=== PATIENT | male | born 1960 | race Caucasian/White ===

== ENCOUNTER 2020-09-07 21:08 | Observation (INO) ==
--- NOTE | 2020-09-07 22:15 | Emergency Department Note ---
History of Present Illness General Chief complaint: Flank Pain Stated complaint: FLANK PAIN Time Seen by Provider: 09/07/20 22:03 History of Present Illness Maximum Pain Intensity: 5 This is a 60-year-old male that presents to the emergency department via private vehicle accompanied by with complaints of "right lower quadrant abdominal pain". The patient notes recent diagnosis of appendicitis by CT performed at the [facility] location as an outpatient. He was seen here in the ED about a week ago and was discharged home after general surgery eval on antibiotics. He has been doing well and had outpatient follow-up with general surgery. And he notes around 5:30 PM yesterday the pain returned and has been worsening into today. Pain is in the right lower quadrant and pain currently is a 5/10. He last ate food tonight around 5:30 PM. No trauma or injury. No f hakan, chills, nausea, vomiting or diarrhea. He notes this is the same exact pain that prompted the CT scan. Home Medications Medication Instructions Recorded Confirmed Type amlodipine 10 mg tablet 10 mg PO DAILY 09/01/20 09/07/20 History amoxicillin 875 mg-potassium 1 tab PO Q12H 10 Days #20 tab 09/01/20 09/07/20 Rx clavulanate 125 mg tablet (Augmentin) atorvastatin 20 mg tablet 20 mg PO QPM 09/01/20 09/07/20 History cholecalciferol (vitamin D3) 25 25 mcg PO DAILY 09/01/20 09/07/20 History mcg (1,000 unit) capsule (Vitamin D3) fluticasone propionate 50 2 spray INTRANASAL HS 09/01/20 09/07/20 History mcg/actuation nasal spray,suspension lisinopril 40 mg tablet 40 mg PO DAILY 09/01/20 09/07/20 History metformin 1,000 mg tablet 1,000 mg PO BID 09/01/20 09/07/20 History poeoptfwycla-wpwhakzw-ezdqzr 1 tab PO Q OTHER DAY 09/01/20 09/07/20 History tablet (Multivitamin 50 Plus) B-complex with vitamin C 1 cap PO Q OTHER DAY 09/07/20 09/07/20 History ascorbic acid (vitamin C) 1,000 mg 1 g PO DAILY 09/07/20 09/07/20 History tablet (Vitamin C) oxycodone-acetaminophen 5 mg-325 1 - 2 tab PO Q4H PRN #15 tab 09/08/20 Rx mg tablet (Percocet) Allergies Allergy/AdvReac Type Severity Reaction Status Date / Time bee venom protein (honey bee) Allergy Hives Verified 09/07/20 22:09 Past Med/Surg History Medical History HTN (hypertension) Surgical History H/O colonoscopy (2010) No pertinent past surgical history S/P tonsillectomy (~1970) Family History Mother Thyroid disease Heart disease Father Heart disease Hypertension Social History Smoking Status: Never smoker Second Hand Exposure: No; Do You Dip or Chew Tobacco: No; Tobacco Cessation Education Requested by Patient: No Hx Alcohol Use: Yes Alcohol type: wine and hard liquor Alcohol Intake Frequency: 2-3 x/Week Hx Substance Use: No Preferred Language: Lithuanian Communication Ability: Effective 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 Beliefs That Will Affect Care: None marital status: Current Living Situation: Spouse current occupational status: employed current occupation: CPA How many Children do You have: 2 Other Information That Helps Us Care for You: No Feels Safe at Home: Yes Safety Concerns: Feels Safe At This Time during the past year weight has: remained stable Assistive Devices: CPAP and Glasses Review of Systems A total of 10 systems reviewed and were otherwise negative Physical Exam Vital Signs Vital Signs - 24 hr 09/07/20 21:13 09/07/20 22:10 09/07/20 22:30 Temperature 36.9 C Temperature Source Temporal Artery Scan Pulse Rate 86 89 84 Pulse Rate from SpO2 Sensor Respiratory Rate 18 20 16 Respiratory Effort / Characteristics Non-Labored Respiratory Depth Normal Blood Pressure 169/84 H 152/66 H Blood Pressure Mean 112 94 Pulse Oximetry 95 94 Oxygen Delivery Method Room Air Room Air Sepsis Recent Fever Within 48 Hours No Sepsis New/Unexplained Change in Mental Status N/A Sepsis Action Taken by Nursing No Action Required 09/07/20 23:01 09/07/20 23:10 09/07/20 23:20 Temperature Temperature Source Pulse Rate 82 86 86 Pulse Rate from SpO2 Sensor 85 86 87 Respiratory Rate 18 16 21 Respiratory Effort / Characteristics Respiratory Depth Blood Pressure Blood Pressure Mean Pulse Oximetry 95 95 95 Oxygen Delivery Method Sepsis Recent Fever Within 48 Hours Sepsis New/Unexplained Change in Mental Status Sepsis Action Taken by Nursing 09/07/20 23:30 09/07/20 23:40 09/07/20 23:50 Temperature Temperature Source Pulse Rate 89 85 85 Pulse Rate from SpO2 Sensor 85 86 85 Respiratory Rate 16 21 18 Respiratory Effort / Characteristics Respiratory Depth Blood Pressure Blood Pressure Mean Pulse Oximetry 95 96 95 Oxygen Delivery Method Sepsis Recent Fever Within 48 Hours Sepsis New/Unexplained Change in Mental Status Sepsis Action Taken by Nursing 09/08/20 00:00 09/08/20 00:10 09/08/20 00:20 Temperature Temperature Source Pulse Rate 84 87 90 Pulse Rate from SpO2 Sensor 83 86 89 Respiratory Rate 21 22 18 Respiratory Effort / Characteristics Respiratory Depth Blood Pressure Blood Pressure Mean Pulse Oximetry 94 93 94 Oxygen Delivery Method Sepsis Recent Fever Within 48 Hours Sepsis New/Unexplained Change in Mental Status Sepsis Action Taken by Nursing 09/08/20 00:30 Temperature Temperature Source Pulse Rate 81 Pulse Rate from SpO2 Sensor 80 Respiratory Rate 23 Respiratory Effort / Characteristics Respiratory Depth Blood Pressure Blood Pressure Mean Pulse Oximetry 94 Oxygen Delivery Method Sepsis Recent Fever Within 48 Hours Sepsis New/Unexplained Change in Mental Status Sepsis Action Taken by Nursing VITAL SIGNS - Vital signs and nursing notes were reviewed. Stable and afebrile. GENERAL -60-year-old male appearing his stated age who is in no acute distress. Communicates well with provider and answers questions appropriately. SKIN - Without rashes. No meningeal or petechial rash. LUNGS - Chest wall symmetric without accessory muscle use, intercostals retractions, or central cyanosis. Normal vesicular breath sounds CTA B/L. No wheezes, rales, or rhonchi appreciated. CARDIAC - RRR with S1/S2. No murmur, rubs, or gallops appreciated. ABDOMEN - Abdominal contour normal without pulsations or visible masses. BS normoactive all four quadrants. There is right lower quadrant abdominal tenderness to palpation noted. No palpable masses, hepatosplenomegaly, or ascites noted. Nonrigid. Abdomen is soft. EXTREMITIES - No clubbing or peripheral cyanosis. +5/5 strength noted in UE/LE bilaterally. NEUROLOGIC - Cranial nerves II through XII grossly intact. PSYCH - A&O, and cooperates fully with examiner. Pt is very pleasant and interacts well with examiner. Course Administered Medications Lactated Ringer's (Lr) 1,000 mls @ 75 mls/hr IV .[id number] FRANC Stop: 10/08/20 01:55 Last Admin: 09/08/20 01:56 Dose: 75 mls/hr Documented by: [id number] Cefoxitin Sodium 2,000 mg/ (Dextrose) 60 mls @ 100 mls/hr IV Q6H FRANC Stop: 09/18/20 01:59 Last Infusion: 09/08/20 08:10 Dose: 0 mls/hr Documented by: [id number] Admin: 09/08/20 07:32 Dose: 100 mls/hr Documented by: [id number] Infusion: 09/08/20 02:36 Dose: 0 mls/hr Documented by: [id number] Admin: 09/08/20 02:00 Dose: 100 mls/hr Documented by: [id number] Discontinued Medications Ioversol (Optiray 320 125ml) 125 ml IV ONCE ONE Stop: 09/08/20 00:58 Last Admin: 09/08/20 00:58 Dose: 119 ml Documented by: [id number] Lidocaine/Epinephrine (Lidocaine/Epinephrine 1% 20 Ml Vial) Confirm Administered Dose 20 ml .ROUTE .STK-MED ONE Stop: 09/08/20 09:02 Last Admin: 09/08/20 10:21 Dose: 5 ml Documented by: [id number] Medical Decision Making Laboratory Data Result diagrams: 09/08/20 06:17 09/08/20 06:17 Lab Results 09/07/20 09/07/20 09/08/20 Range/Units 22:10 22:10 00:04 WBC 9.84 (4.8-10.8) K/uL RBC 4.83 (4.7-6.1) M/uL Hgb 14.5 (14.0-18.0) g/dL Hct 42.2 (42-52) % MCV 87.4 (80-100) fL MCH 30.0 (25-34) pg MCHC 34.4 (32-36) g/dL RDW Std Deviation 43.3 (36.4-46.3) fL RDW Coeff of Prashanth 13.5 (11.5-14.5) % Plt Count 349 (130-400) K/uL MPV 9.6 (7.4-10.4) fL Immature Gran % (Auto) 0.3 % Neut % (Auto) 65.2 % Lymph % (Auto) 24.0 % [place] % (Auto) 7.4 % Eos % (Auto) 2.8 % Baso % (Auto) 0.3 % Neut # (Auto) 6.41 (1.4-6.5) K/uL Lymph # (Auto) 2.36 (1.2-3.4) K/uL [place] # (Auto) 0.73 H (0.11-0.59) K/uL Eos # (Auto) 0.28 (0-0.5) K/uL Baso # (Auto) 0.03 (0-0.2) K/uL Immature Gran # (Auto) 0.03 H (0.00-0.02) K/uL Sodium 139 (136-145) mmol/L Potassium 3.7 (3.5-5.1) mmol/L Chloride 108 H (98-107) mmol/L Carbon Dioxide 25 (21-32) mmol/L Anion Gap 7.0 (3-11) BUN 15 (7-18) mg/dl Creatinine 1.04 (0.6-1.4) mg/dl Est Cr Clr Drug Dosing 103.2 ml/min Est GFR ( Amer) 90.0 ml/min Est GFR (Non-Af Amer) 77.7 ml/min BUN/Creatinine Ratio 14.2 (10-20) Glucose 95 (70-99) mg/dl Calcium 8.6 (8.5-10.1) mg/dl Magnesium 2.1 (1.8-2.4) mg/dl Total Bilirubin 0.4 (0.2-1) mg/dl AST 19 (15-37) U/L ALT 47 (12-78) U/L Alkaline Phosphatase 134 H (45-117) U/L Total Protein 7.1 (6.4-8.2) gm/dl Albumin 3.4 (3.4-5.0) gm/dl Globulin 3.7 (2.5-4.0) gm/dl Albumin/Globulin Ratio 0.9 (0.9-2) Lipase 103 (73-393) U/L COVID-19 Eval Order SARS-CoV-2 (PCR) (Negative) 09/08/20 09/08/20 Range/Units 00:33 00:33 WBC (4.8-10.8) K/uL RBC (4.7-6.1) M/uL Hgb (14.0-18.0) g/dL Hct (42-52) % MCV (80-100) fL MCH (25-34) pg MCHC (32-36) g/dL RDW Std Deviation (36.4-46.3) fL RDW Coeff of Prashanth (11.5-14.5) % Plt Count (130-400) K/uL MPV (7.4-10.4) fL Immature Gran % (Auto) % Neut % (Auto) % Lymph % (Auto) % [place] % (Auto) % Eos % (Auto) % Baso % (Auto) % Neut # (Auto) (1.4-6.5) K/uL Lymph # (Auto) (1.2-3.4) K/uL [place] # (Auto) (0.11-0.59) K/uL Eos # (Auto) (0-0.5) K/uL Baso # (Auto) (0-0.2) K/uL Immature Gran # (Auto) (0.00-0.02) K/uL Sodium (136-145) mmol/L Potassium (3.5-5.1) mmol/L Chloride (98-107) mmol/L Carbon Dioxide (21-32) mmol/L Anion Gap (3-11) BUN (7-18) mg/dl Creatinine (0.6-1.4) mg/dl Est Cr Clr Drug Dosing ml/min Est GFR ( Amer) ml/min Est GFR (Non-Af Amer) ml/min BUN/Creatinine Ratio (10-20) Glucose (70-99) mg/dl Calcium (8.5-10.1) mg/dl Magnesium (1.8-2.4) mg/dl Total Bilirubin (0.2-1) mg/dl AST (15-37) U/L ALT (12-78) U/L Alkaline Phosphatase (45-117) U/L Total Protein (6.4-8.2) gm/dl Albumin (3.4-5.0) gm/dl Globulin (2.5-4.0) gm/dl Albumin/Globulin Ratio (0.9-2) Lipase (73-393) U/L COVID-19 Eval Order Covid19 at [facility] SARS-CoV-2 (PCR) NEGATIVE (Negative) Imaging Data Radiologist's Impression: Abdomen/Pelvis CT 09/07/20 22:[address] WITH IV AND ORAL CONTRAST CT DOSE: 1939.24 mGy.cm HISTORY: Right lower quadrant abdominal pain. TECHNIQUE: Multiaxial CT images of the abdomen and pelvis were performed following the use of intravenous and oral contrast. A dose lowering technique was utilized adhering to the principles of ALARA. COMPARISON STUDY: Abdomen and pelvis CT 08/27/2020. FINDINGS: The lung bases are clear. No pneumoperitoneum. No pneumatosis. No fractures within the visualized osseous structures. Hepatic steatosis. The gallbladder, spleen, adrenal glands, pancreas, and right kidney are unremarkable. There is a 4 mm hypodense lesion within the left kidney. This is technically too small to characterize. No hydronephrosis. No retroperitoneal lymphadenopathy. Normal caliber abdominal aorta. The main portal vein is patent. The bladder is unremarkable. Tiny fat-containing left inguinal hernia. No pelvic free fluid. No evidence for bowel obstruction. There is mild periappendiceal inflammatory change at the tip of the appendix with an 8 mm appendicolith. The appendix tip measures up to 1 cm in diameter. Therefore, this is consistent with acute appendicitis. No perforation or abscess identified at this time. IMPRESSION: 1. Acute appendicitis. 2. Hepatic steatosis. 3. Additional findings as described above. ACT 112: Negative or not required by law. Electronically signed by: Igor Chaney M.D. 09/08/2020 7:[address] ABDOMEN & PELVIS With Contrast: Appendicitis. The inflamed appendix measures approximately 8 mm. No abscess. Fatty liver. Radiologist: Van Panda M.D. Study ready at 01:48 and initial results transmitted at 02:17 MDM Narrative Patient was seen and evaluated as above in room C02. Review was performed of nursing notes and vital signs. I did review pertinent previous visits and patien t history. After obtaining a thorough history and physical examination the above work up was performed. Patient presents to us today with right lower quadrant abdominal pain with an outpatient CT scan performed at [facility] earlier this month that showed acute appendicitis. Patient was seen here in the ED by myself as well as general surgery about a week ago. Patient was much improved and feeling better. Decision by general surgery team at the time was to start the patient on p.o. antibiotics and discharge home. He has followed up in the outpatient setting. He was doing much better until last night when the pain worsened. He notes the same pain that has been worsening now in the right lower quadrant. He is tender in the right lower quadrant on exam. Abdomen is soft and nonrigid. Options of care were discussed with the patient. IV access was established. Labs were drawn. I did reach out to the general surgery team. Recommendation was to repeat a CT scan of the abdomen pelvis with IV and oral contrast here in the ED. they also came to evaluate the patient. Patient will be admitted for further evaluation and management with likely surgical intervention. CT scan reports as above. Patient respectfully declined pain medication throughout his stay. Laboratory studies reveal no leukocytosis or concern anemia. No emergent metabolic disturbance. Urinalysis does not suggest infection. Covid testing negative. Please refer to further documentation regarding his stay. GCS: 15 In the evaluation and treatment of this patient the following differential diagnoses were entertained: Acute abdomen, appendicitis, diverticulitis, perforation, abscess, among others. Impression & Plan Acute appendicitis, Abdominal pain, RLQ Discharge Plan Visit Data Chief Complaint: Flank Pain Stated Complaint: FLANK PAIN ED Provider: Mitchell Cuellar ED Midlevel Provider: Benson Poole Discharge Problem: Acute appendicitis, Abdominal pain, RLQ Patient Disposition: Admitted As Inpatient Condition: Good Discharge Instructions Interventions: ED Discharge Assessment Last Done: 09/08/20 01:48 Discharge Problem: Acute appendicitis Qualifiers: Appendicitis perforation presence: without perforation Appendicitis abscess pre sence: without abscess
[2020-09-07 22:49] LABS: Basophils # (auto) 0.03 K/uL (0-0.2); Basophils % (auto) 0.3 %; Eosinophils # (auto) 0.28 K/uL (0-0.5); Eosinophils % (auto) 2.8 %; Hematocrit (blood only) 42.2 % (42-52); Hemoglobin 14.5 g/dL (14.0-18.0); Immature Granulocytes # (auto) 0.03 K/uL (0.00-0.02); Immature Granulocytes % (auto) 0.3 %; Lymphocytes # (auto) 2.36 K/uL (1.2-3.4); Mean Corpuscular Hgb Conc 34.4 g/dL (32-36); Mean Corpuscular Volume 87.4 fL (80-100); Mean Platelet Volume 9.6 fL (7.4-10.4); Monocytes # (auto) 0.73 K/uL (0.11-0.59); Monocytes % (auto) 7.4 %; Neutrophils # (auto) 6.41 K/uL (1.4-6.5); Neutrophils % (auto) 65.2 %; Platelet Count 349 K/uL (130-400); RDW Coefficient of Variation 13.5 % (11.5-14.5); RDW Standard Deviation 43.3 fL (36.4-46.3); Red Blood Count 4.83 M/uL (4.7-6.1); White Blood Count 9.84 K/uL (4.8-10.8)
[2020-09-07 23:30] LABS: Albumin Globulin Ratio 0.9 (0.9-2); Albumin Level 3.4 gm/dl (3.4-5.0); BUN Creatinine Ratio 14.2 (10-20); Bilirubin,Total 0.4 mg/dl (0.2-1); Calcium 8.6 mg/dl (8.5-10.1); Creatinine Clr Calc Pharmacy 103.2 ml/min; Est GFR (Non-African American) 77.7 ml/min; Globulin 3.7 gm/dl (2.5-4.0); Total Protein 7.1 gm/dl (6.4-8.2)
[2020-09-08 00:29] LABS: Potassium 3.7 mmol/L (3.5-5.1)
[2020-09-08 00:34] LABS: Magnesium 2.1 mg/dl (1.8-2.4)
[2020-09-08] MEDS ORDERED: OPTIRAY 320 125ml IV ONE (00:57)
--- NOTE | 2020-09-08 01:14 | History & Physical Report ---
Date of Service September 08, 2020 Assessment & Plan (1) Abdominal pain: Due to the patient's ongoing abdominal pain he will be admitted to the hospital we proceed as follows: We will provide analgesics We will provide antiemetics Patient was taking oral Augmentin as an outpatient we will switch this to intravenous Mefoxin for the present time Hydrate the patient with IV fluids We will repeat labs first thing in the morning We will keep the patient n.p.o. and upon reassessment may consider performing an appendectomy tomorrow as a potential cause of patient's ongoing is abdominal pain We will utilize SCDs for DVT prevention, no chemical means due to the potential need for surgery Additional recommendations will be made based on patient's clinical course as it unfolds The patient be a level 1 full code History of Present Illness Chief Complaint: Abdominal pain Primary Care Provider: Ranulfo Carcamo MD Is a 60-year-old male who is well-known to our service. He initially presented to [facility] emergency department on September 01 of this year. He was referred to the emergency department at that time by his primary care physician. Patient was experiencing abdominal pain so his primary care physician referred him for an outpatient CT scan. The CT scan showed findings concerning for acute appendicitis. Prior to obtaining this CT scan the patient said that he was having abdominal pain that began approximately 2 weeks prior to his CAT scan. The pain was mostly located on the right side of his abdomen and the pain was worse when the patient would stand up sit down to move in certain directions. He did not note any palliative factors. A forementioned CAT scan was performed on August 27 of this year however it was not read for 5 days and due to the findings the patient was referred to the emergency department. The patient was evaluated by [facility] general surgery in the emergency department on September 01 with the patient says that he was still having some mild right-sided abdominal pain but has not worsened since he had his initial CAT scan. He does not report any fevers, shakes, chills. He did not have any nausea vomiting or change in appetite. He also denies any change in bowel habits. Patient reports no prior surgical history and reports a colonoscopy approximately 10 years ago with no concerning pathology. As the patient was largely pain-free during that emergency department visit he was felt to be stable for discharge home on oral antibiotics. During the patient's [facility] emergency department visit on September 01 he was noted to have a slightly elevated white blood cell count of 11.3. Covid test on that date was noted to be negative. Patient has been followed closely since that time by Dr. Choe and has been seen in the clinic on September 03. During this visit patient was noted to be in minimal discomfort so plans were noted to continue close observation. Following his visit in the clinic labs were ordered which were performed on September 06 and the patient was noted to have a normal white blood cell count. Patient represented to the emergency department this evening as he noted that his right lower quadrant abdominal pain got somewhat worse. Again he denies any fevers, shakes, chills. He denies any change in bowel habits. He denies any nausea or vomiting. He denies any modifying factors to the pain other than palpation and certain movements. He has not noted any change in appetite and his most recent oral intake was approximately 5:30 PM this evening. Today in the emergency department patient did have a CT scan abdomen and pelvis utilizing oral and IV contrast. Scan is yet to be read but was viewed by Dr. Choe and he did not see any gross abnormalities that would necessitate urgent surgical intervention. Patient also had labs where his white blood cell count, hemoglobin, hematocrit, and platelet count were all noted to be within normal range. Also chemistry profile where his sodium, potassium, BUN, and creatinine were all noted to be normal. A Covid test has been performed and is pending. I did visit with the patient in emergency department room C2 at that time the patient was sitting in a bedside chair resting comfortably was in no overt distress. Allergies Allergy/AdvReac Type Severity Reaction Status Date / Time bee venom protein (honey bee) Allergy Hives Verified 09/07/20 22:09 Home Medications Medication Instructions Recorded Confirmed Type amlodipine 10 mg PO DAILY 09/01/20 09/07/20 History amoxicillin-pot clavulanate 1 tab PO Q12H 10 Days #20 tab 09/01/20 09/07/20 Rx [Augmentin] atorvastatin 20 mg PO QPM 09/01/20 09/07/20 History cholecalciferol (vitamin D3) 25 mcg PO DAILY 09/01/20 09/07/20 History [Vitamin D3] fluticasone propionate 2 spray INTRANASAL HS 09/01/20 09/07/20 History lisinopril 40 mg PO DAILY 09/01/20 09/07/20 History metformin 1,000 mg PO BID 09/01/20 09/07/20 History brgwnymxuwpa-unpokwjx-ipuxmi 1 tab PO Q OTHER DAY 09/01/20 09/07/20 History [Multivitamin 50 Plus] B-complex with vitamin C [Vitamin 1 cap PO Q OTHER DAY 09/07/20 09/07/20 History B Complex With C] ascorbic acid (vitamin C) [Vitamin 1 g PO DAILY 09/07/20 09/07/20 History C] Past Med/Surg History Medical History HTN (hypertension) Surgical History H/O colonoscopy (2010) No pertinent past surgical history S/P tonsillectomy (~1970) Family History Mother Thyroid disease Heart disease Father Heart disease Hypertension Social History Smoking Status: Never smoker Hx Alcohol Use: Yes Alcohol type: beer, wine and hard liquor Alcohol Intake Frequency: 2-3 x/Week Preferred Language: Sami marital status: current occupational status: employed current occupation: CPA How many Children do You have: 2 Feels Safe at Home: Yes during the past year weight has: remained stable Review of Systems Constitutional: no fever and no chills Eyes: no diplopia Ear, Nose, Mouth, Throat: no ear trauma Respiratory: no cough and no dyspnea Cardiovascular: no chest pain Gastrointestinal: + abdominal pain; no nausea, no vomiting, no diarrhea/loose stools and no blood in stools Genitourinary: no dysuria Musculoskeletal: no back pain Integumentary: no rash Neurologic: no localized weakness Physical Exam Constitutional: well developed and well nourished; no acute distress Eyes: no conjunctival abnormality ENMT: Ears: no hearing impairment Neck: trachea midline Respiratory: normal respiratory effort; no respiratory distress and no labored breathing Cardiovascular: Rate/Rhythm: regular rate and regular rhythm Gastrointestinal (Abdomen): Abdomen is rotund and nondistended. There is no rebound tenderness or guarding. Patient did have some right lower quadrant pain with very deep palpation only. Musculoskeletal: No calf tenderness Skin: no rashes, warm and dry Neurologic: moves all extremities Psychiatric: A+Ox3, euthymic affect Results & Data Results & Data ([facility]) Vital Signs (Past 12 Hours) Vital Signs Temp Pulse Resp BP Pulse Ox 09/08/20 00:30 81 23 94 09/08/20 00:20 90 18 94 09/08/20 00:10 87 22 93 09/08/20 00:00 84 21 94 09/07/20 23:50 85 18 95 09/07/20 23:40 85 21 96 09/07/20 23:30 89 16 95 09/07/20 23:20 86 21 95 09/07/20 23:10 86 16 95 09/07/20 23:01 82 18 95 09/07/20 22:30 84 16 152/66 H 09/07/20 22:10 89 20 94 09/07/20 21:13 36.9 C 86 18 169/84 H 95 Code Status & VTE Plan VTE Prophylaxis Plan VTE Prophylaxis will be ordered: Yes PG Care Time/CCT Total # of Minutes Spent Total Time Spent with Patient: Total time spent is greater than 50% in coordination of care (as documented) at patient's floor/unit and/or counseling patient: Coding Level of Care Code INT OBSERVATION CARE 70M LVL 3 Diagnoses Abdominal pain R10.9
[2020-09-08 01:32] LABS: Appearance Urine Clear (Clear); Bilirubin Urine Negative (Negative); Blood Urine Negative (Negative); Color Urine Yellow; Glucose Urine UA Negative (Negative); Ketones Urine Negative (Negative); Leukocyte Esterase Urine Negative (Negative); Nitrite Urine Negative (Negative); Protein Urine Negative (Negative); Specific Gravity Urine > 1.045 (1.000-1.030); Urobilinogen Urine Negative (Negative); pH Urine 5.5 (4.5-7.5)
[2020-09-08] MEDS: LACTATED RINGER'S 1,000 ML IV SCH ×2 (01:56→15:47)
[2020-09-08] MEDS ORDERED: ACETAMINOPHEN 1,000 MG/100 ML VIAL IV PRN (01:56)
[2020-09-08] MEDS ORDERED: ONDANSETRON INJ 2 MG/ML 2 ML VIAL IV PRN ×2 (01:56→09:13)
[2020-09-08] MEDS ORDERED: MoRPHine SULFATE 4 MG/ML 1 ML CARP\\VIAL IV PRN ×2 (01:56→11:47)
[2020-09-08] MEDS: cefOXitin 2,000 MG in DEXTROSE 5% 50 ML IV SCH ×3 (02:00→13:31)
[2020-09-08 06:31] LABS: Basophils # (auto) 0.03 K/uL (0-0.2); Basophils % (auto) 0.4 %; Eosinophils # (auto) 0.23 K/uL (0-0.5); Eosinophils % (auto) 2.7 %; Hemoglobin 14.5 g/dL (14.0-18.0); Immature Granulocytes # (auto) 0.02 K/uL (0.00-0.02); Immature Granulocytes % (auto) 0.2 %; Lymphocytes # (auto) 1.92 K/uL (1.2-3.4); Lymphocytes % (auto) 22.8 %; Mean Corpuscular Hemoglobin 29.4 pg (25-34); Mean Corpuscular Hgb Conc 34.5 g/dL (32-36); Mean Corpuscular Volume 85.2 fL (80-100); Mean Platelet Volume 9.2 fL (7.4-10.4); Monocytes % (auto) 7.1 %; Neutrophils # (auto) 5.62 K/uL (1.4-6.5); Neutrophils % (auto) 66.8 %; Platelet Count 298 K/uL (130-400); RDW Coefficient of Variation 13.6 % (11.5-14.5); RDW Standard Deviation 41.9 fL (36.4-46.3); Red Blood Count 4.93 M/uL (4.7-6.1); White Blood Count 8.42 K/uL (4.8-10.8)
[2020-09-08 06:49] LABS: BUN Creatinine Ratio 11.9 (10-20); Calcium 8.5 mg/dl (8.5-10.1); Creatinine Clr Calc Pharmacy 97.7 ml/min; Est GFR (African American) 84.1 ml/min; Est GFR (Non-African American) 72.6 ml/min; Potassium 3.9 mmol/L (3.5-5.1)
--- NOTE | 2020-09-08 07:50 | CT Scan Report ---
ABDOMEN AND PELVIS CT WITH IV AND ORAL CONTRAST CT DOSE: 1939.24 mGy.cm HISTORY: Right lower quadrant abdominal pain. TECHNIQUE: Multiaxial CT images of the abdomen and pelvis were performed following the use of intrave nous and oral contrast. A dose lowering technique was utilized adhering to the principles of ALARA. COMPARISON STUDY: Abdomen and pelvis CT 08/27/2020. FINDINGS: The lung bases are clear. No pneumoperitoneum. No pneumatosis. No fractures within the visu alized osseous structures. Hepatic steatosis. The gallbladder, spleen, adrenal glands, pancreas, and right kidney are unremarkable. There is a 4 mm hypodense lesion within the left kidney. This is techn ically too small to characterize. No hydronephrosis. No retroperitoneal lymphadenopathy. Normal calib er abdominal aorta. The main portal vein is patent. The bladder is unremarkable. Tiny fat-containing left inguinal hernia. No pelvic free fluid. No evidence for bowel obstruction. There is mild periappe ndiceal inflammatory change at the tip of the appendix with an 8 mm appendicolith. The appendix tip m easures up to 1 cm in diameter. Therefore, this is consistent with acute appendicitis. No perforation or abscess identified at this time. IMPRESSION: 1. Acute appendicitis. 2. Hepatic steatosis. 3. Additional findings as described above. ACT 112: Negative or not required by law. Electronically signed by: Igor Chaney M.D. 09/08/2020 7:49 AM
--- NOTE | 2020-09-08 08:59 | Surgery Progress Note ---
Date of Service September 08, 2020 Assessment & Plan (1) Abdominal pain: We will proceed with laparoscopic appendectomy possible open risk and complication of procedure explained to the patient including bleeding infection perhaps continued pain in right lower quadrant since the CT scan findings of appendicitis but not significantly enlarged appendix with no significant periappendiceal inflammatory response All questions were answered Permit was signed Admission and Anticipated Discharge Date Admission Date: September 08, 2020 Subjective Feels about the same still some pain right lower quadrant not increased since last evening Physical Exam Constitutional: Alert coherent comfortable Eyes: Sclera slightly injected Gastrointestinal (Abdomen): Abdomen some discomfort deep palpation right lower quadrant no rebound Results & Data ([facility]) Vital Signs (Past 12 Hours) Vital Signs Temp Pulse Pulse Pulse Resp BP BP 09/08/20 08:45 36.9 C 86 18 09/08/20 06:08 36.8 C 88 16 09/08/20 01:55 37.1 C 77 14 09/08/20 01:29 148/75 H 09/08/20 00:30 81 23 09/08/20 00:20 90 18 09/08/20 00:10 87 22 09/08/20 00:00 84 21 09/07/20 23:50 85 18 09/07/20 23:40 85 21 09/07/20 23:30 89 16 09/07/20 23:20 86 21 09/07/20 23:10 86 16 09/07/20 23:01 82 18 09/07/20 22:30 84 16 152/66 H 09/07/20 22:10 89 20 09/07/20 21:13 36.9 C 86 18 169/84 H BP Pulse Ox 09/08/20 08:45 150/79 H 97 09/08/20 06:08 130/79 95 09/08/20 01:55 143/76 H 95 09/08/20 01:29 98 09/08/20 00:30 94 09/08/20 00:20 94 09/08/20 00:10 93 09/08/20 00:00 94 09/07/20 23:50 95 09/07/20 23:40 96 09/07/20 23:30 95 09/07/20 23:20 95 09/07/20 23:10 95 09/07/20 23:01 95 09/07/20 22:30 09/07/20 22:10 94 07/13/21 21:13 95 PG Care Time/CCT Total # of Minutes Spent Total Time Spent with Patient: Total time spent is greater than 50% in coordination of care (as documented) at patient's floor/unit and/or counseling patient: Coding Level of Care Code 21605 Subseq Hosp Care Lvl 2 Diagnoses Abdominal pain R10.9
[2020-09-08] MEDS ORDERED: amLODIPine BESYLATE 5 MG TAB PO SCH (09:00)
[2020-09-08] MEDS ORDERED: LIDOCAINE/EPINEPHRINE 1% 20 ML VIAL ONE (09:01)
[2020-09-08] MEDS ORDERED: MIDAZOLAM HCL 1 MG/ML 2ML VIAL ONE (09:06)
[2020-09-08] MEDS ORDERED: fentaNYL citrate 100 MCG/2 ML VIAL ONE ×2 (09:06→09:52)
[2020-09-08] MEDS ORDERED: DEXAMETHASONE SOD INJ 4 MG/ML VIAL ONE (09:06)
[2020-09-08] MEDS ORDERED: LIDOCAINE 2% 2 ML VIAL/AMP(20MG/ML) INFIL ONE (09:06)
[2020-09-08] MEDS ORDERED: PROPOFOL IV EMULSION 10 MG/ML 20 ML VIAL IV ONE (09:06)
[2020-09-08] MEDS ORDERED: ONDANSETRON INJ 2 MG/ML 2 ML VIAL ONE (09:06)
[2020-09-08] MEDS ORDERED: NEOSTIGMINE METHYLSULFATE 1 MG/ML 10ML VIAL ONE (09:06)
[2020-09-08] MEDS ORDERED: GLYCOPYRROLATE 0.2 MG/ML VIAL ONE (09:06)
--- NOTE | 2020-09-08 09:12 | Anesthesiology Consultation ---
Date of Service September 08, 2020 History Surgery Operation Date: 09/08/20 08:20 Proposed Procedures p Laparoscopic Appendectomy, Possible Open - Marlon Choe MD, FACS Height/Weight Height: 5 ft 8 in Weight: 139.3 kg Allergies Allergy/AdvReac Type Severity Reaction Status Date / Time bee venom protein (honey bee) Allergy Hives Verified 09/07/20 22:09 Medications Home Medications Medication Instructions Recorded Confirmed Last Taken amlodipine 10 mg tablet 10 mg PO DAILY 09/01/20 09/07/20 09/07/20 amoxicillin 875 mg-potassium 1 tab PO Q12H 10 Days #20 tab 09/01/20 09/07/20 09/07/20 clavulanate 125 mg tablet (Augmentin) atorvastatin 20 mg tablet 20 mg PO QPM 09/01/20 09/07/20 09/07/20 cholecalciferol (vitamin D3) 25 25 mcg PO DAILY 09/01/20 09/07/20 09/07/20 mcg (1,000 unit) capsule (Vitamin D3) fluticasone propionate 50 2 spray INTRANASAL HS 09/01/20 09/07/20 09/07/20 mcg/actuation nasal spray,suspension lisinopril 40 mg tablet 40 mg PO DAILY 09/01/20 09/07/20 09/07/20 metformin 1,000 mg tablet 1,000 mg PO BID 09/01/20 09/07/20 09/07/20 [id number]-[id number]-[id number] 1 tab PO Q OTHER DAY 09/01/20 09/07/20 09/06/20 tablet (Multivitamin 50 Plus) B-complex with vitamin C 1 cap PO Q OTHER DAY 09/07/20 09/07/20 09/07/20 ascorbic acid (vitamin C) 1,000 mg 1 g PO DAILY 09/07/20 09/07/20 09/07/20 tablet (Vitamin C) Active Medications Generic Name Dose Route Start Last Admin Trade Name Freq PRN Reason Stop Dose Admin Lactated Ringer's 1,000 mls @ 75 mls/hr 09/08/20 01:56 09/08/20 01:56 Lr IV 10/08/20 01:55 75 mls/hr .[id number] FRANC Administration Cefoxitin Sodium 2,000 mg/ 60 mls @ 100 mls/hr 09/08/20 02:00 09/08/20 08:10 Dextrose IV 09/18/20 01:59 Infused Q6H FRANC Infusion NPO Date Last Intake of Fluids: 09/07/20 Time Last Intake of Fluids: 23:55 Date Last Intake of Solids: 09/07/20 Time Last Intake of Solids: 18:00 Past Medical History Medical History HTN (hypertension) Past Family History Family History Mother Thyroid disease Heart disease Father Heart disease Hypertension Past Surgical History Surgical History H/O colonoscopy (2010) No pertinent past surgical history S/P tonsillectomy (~1969) Past Anesthesia History No Hx of Anesthesia Complications History of PONV No Hx of PONV Social History Smoking Status: Never smoker Do You Dip or Chew Tobacco: No Hx Alcohol Use: Yes Alcohol type: wine and hard liquor alcohol intake frequency: a few times a month Hx Substance Use: No Physical Exam Vital Signs Last Vital Signs Temp 36.9 C 09/08/20 08:45 Pulse 86 09/08/20 08:45 Resp 18 09/08/20 08:45 BP 150/79 H 09/08/20 08:45 Pulse Ox 97 09/08/20 08:45 Testing Laboratory Results 09/08/20 06:17 09/08/20 06:17 Urine Color Yellow 09/08/20 01:23 Urine Appearance Clear (Clear) 09/08/20 01:23 Urine pH 5.5 (4.5-7.5) 09/08/20 01:23 Ur Specific Fisk > 1.045 (1.000-1.030) H 09/08/20 01:23 Urine Protein Negative (Negative) 09/08/20 01:23 Urine Glucose (UA) Negative (Negative) 09/08/20 01:23 Urine Ketones Negative (Negative) 09/08/20 01:23 Urine Nitrite Negative (Negative) 09/08/20 01:23 Ur Leukocyte Esterase Negative (Negative) 09/08/20 01:23
[2020-09-08] MEDS ORDERED: ePHEDrine sulfate 50 MG/ML AMP IV PRN (09:13)
[2020-09-08] MEDS ORDERED: fentaNYL citrate 100 MCG/2 ML VIAL IV PRN (09:13)
[2020-09-08] MEDS ORDERED: HYDROmorphone INJ 2 MG/ML SYR/VIAL IV PRN (09:13)
[2020-09-08] MEDS ORDERED: ATROPINE SULFATE 0.1 MG/ML 10ML SYR IV PRN (09:13)
[2020-09-08] MEDS ORDERED: SUGAMMADEX SODIUM 200 MG/2 ML VIAL IV ONE (09:44)
[2020-09-08] MEDS ORDERED: KETOROLAC 30 MG/ML VIAL ONE (10:21)
--- NOTE | 2020-09-08 10:22 | Post Operative Brief Note ---
PG Immediate Post Op with CF Date of Surgery September 08, 2020 Pre & Post Diagnosis Operation Date: 09/08/20 08:20 Pre-Op Diagnosis: Abdominal pain Post-Op Diagnosis: Abdominal pain I identified the patient and participated in the time-out.: Yes Procedure Operation Date: 09/08/20 08:20 Actual Procedures p Laparoscopic Appendectomy(Not Applicable) - Marlon Choe MD, FACS Surgeon Marlon Choe MD, FACS Hand Spring Repairer Helper b anshu gardiner Estimated Blood Loss 10 Findings Consistent with Post-Op Diagnosis Specimens Specimen Description: A: appendix
--- NOTE | 2020-09-08 10:34 | Operative Report ---
PG Post Operative Report Pre & Post Diagnosis Operation Date: 09/08/20 08:20 Pre-Op Diagnosis: Abdominal pain Post-Op Diagnosis: Abdominal pain I identified the patient and participated in the time-out.: Yes Procedure Operation Date: 09/08/20 08:20 Actual Procedures p Laparoscopic Appendectomy(Not Applicable) - Marlon Choe MD, FACS The patient was brought into the operating theater supine position general endotracheal anesthesia the abdomen was prepped byline solution properly draped timeout was had patient was identified made a small incision supraumbilically sufficient for Veress needle followed by 5 mm trocar after insufflation to 15 mm we were able to visualize right lower quadrant can see the cecum and at this point we placed a 5 mm right upper quadrant trocar with preemptive local analgesia 1% Xylocaine and using a grasper there we were able to elevate the cecum I could see the takeoff of the appendix from the cecum but I could not visualize the rest that was going down into the gutter this point I converted the 5 mm umbilical port to 11 mm under direct visualization then placed the 5 mm port between the symphysis pubis and umbilical area on direct visualization we placed the camera in that position place the patient in left lateral position slight Trendelenburg and using the epigastric and right upper quadrant trochars we were able then to elevate the cecum could identify the appendix at this takeoff from the cecum very easily appreciated the rest was going stuck to the anterior abdominal wall where piece of omentum was strictly adherent to the anterior abdominal wall just superior and inferior to the area of the appendix we are able to create a window between the appendix and the mesentery to the cecum the use of purple application we fired it across and at this point were able to elevate the appendix which was redundant on itself thickened freed from some retroperitoneal attachments using electrocautery to free some of these fiber adhesions then we were able to elevate the mesenteric quite easily. I used a langley load at this time to partially resect the mesentery to the appendix then the one remnant was still present would appear to may be the artery then I used a 10 mm clips x2 secured the appendix was freed placed in an Endopouch and taken out intact through the umbilical port the area was then checked hemostasis appear satisfactory we then looked at the piece of omentum that was stuck down onto the anterior abdominal wall look chronically in nature as we freed this up this most likely was accounting more for the patient's pain that than the appendix itself we did not resected the area that was indurated may have some fat necrosis approximately about 3 to 4 cm in size and length about 3 cm in diameter. This point on direct realization we were able to take out the right upper quadrant trocar after we had direct visualization remove the umbilical trocar. The wound was then closed with [id number] times 2-0 Vicryl for the umbilical fascial stitch and the other ones 4-0 Monocryl Steri-Strips applied procedure was tolerated well by the patient estimate blood loss 10 cc addendumB Tomer gardiner was present throughout the procedure and helped the retraction exposure and wound closure Addendum spoke with his Prachi after the procedure at [phone] Surgeon Marlon Choe MD, FACS Compliance Reviewer renu gardiner Estimated Blood Loss 10 Findings Consistent with Post-Op Diagnosis Acute appendicitis Specimens Appendix Description of Procedure Done I attest to the content of the Intraoperative Record and any orders documented therein. Any exceptions are noted below.
--- NOTE | 2020-09-08 11:16 | Anesthesiology Progress Note ---
Date of Service September 08, 2020 Anesthesia Post Procedure Vital Signs Vital Signs: Temp Pulse Pulse Pulse Pulse Resp BP 09/08/20 11:10 84 12 09/08/20 11:00 83 12 09/08/20 10:50 83 12 09/08/20 10:43 36.3 C L 81 16 09/08/20 08:45 36.9 C 86 18 09/08/20 06:08 36.8 C 88 16 09/08/20 01:55 37.1 C 77 14 09/08/20 01:29 09/08/20 00:30 81 23 09/08/20 00:20 90 18 09/08/20 00:10 87 22 09/08/20 00:00 84 21 09/07/20 23:50 85 18 09/07/20 23:40 85 21 09/07/20 23:30 89 16 09/07/20 23:20 86 21 09/07/20 23:10 86 16 09/07/20 23:01 82 18 09/07/20 22:30 84 16 152/66 H 09/07/20 22:10 89 20 09/07/20 21:13 36.9 C 86 18 169/84 H BP BP Pulse Ox 09/08/20 11:10 160/72 H 95 09/08/20 11:00 153/72 H 98 09/08/20 10:50 163/75 H 98 09/08/20 10:43 160/75 H 100 09/08/20 08:45 150/79 H 97 09/08/20 06:08 130/79 95 09/08/20 01:55 143/76 H 95 09/08/20 01:29 148/75 H 98 09/08/20 00:30 94 09/08/20 00:20 94 09/08/20 00:10 93 09/08/20 00:00 94 09/07/20 23:50 95 09/07/20 23:40 96 09/07/20 23:30 95 09/07/20 23:20 95 09/07/20 23:10 95 09/07/20 23:01 95 09/07/20 22:30 09/07/20 22:10 94 09/07/20 21:13 95 Pain Intensity Right Flank: Pain Intensity: 3 Transfer of Care Handoff Completed per policy Notes Mental Status: alert / awake / arousable and participated in evaluation Patient Amnestic to Procedure: Yes Nausea / Vomiting: adequately controlled Pain: adequately controlled Airway Patency, RR, SpO2: stable & adequate BP & HR: stable & adequate Hydration State: stable & adequate Anesthetic Complications: no major complications apparent
[2020-09-08] MEDS ORDERED: MoRPHine SULFATE 2 MG/ML CARP IV PRN (11:47)
[2020-09-08] MEDS ORDERED: oxyCODONE/ACETAMINOPHEN 5mg/325mg TAB PO PRN ×2 (11:47)
[2020-09-08] MEDS ORDERED: FLUTICASONE PROPIONATE NA SPR 16 GM BTL SCH (21:00)
[2020-09-08] MEDS ORDERED: ATORVASTATIN 20 MG TAB PO SCH (21:00)
--- NOTE | 2020-09-09 10:39 | Discharge Summary ---
Date of Service September 09, 2020 Principal Diagnosis Abdominal pain Discharge Exam Constitutional WD/WN, vitals as above Gastrointestinal (Abdomen) Inspection/Auscultation: + abdominal surgical incision (dressings dry) Percussion/Palpation: abdomen soft Discharge Data Allergies Allergy/AdvReac Type Severity Reaction Status Date / Time bee venom protein (honey bee) Allergy Hives Verified 09/07/20 22:09 Consultations 09/08/20 01:04 ED Decision to Admit Stat Procedures Performed Operation Date: 09/08/20 08:20 Actual Procedures p Laparoscopic Appendectomy(Not Applicable) - Marlon Choe MD, FACS Ordered Studies 09/07/20 22:16 CT abd pelvis oral and IV con Urgent Hospital Course (1) Acute appendicitis: 60 y/o male presented to the ER with increased abdominal pain. He was being followed as an outpatient for abnormal CT scan and treated with Augmentin for dilated appendix. White count was 9.[address] was consistent with tip appendicitis. He was admitted to the surgical floor overnight. IV antibiotics were started and he was taken to the operating room in the morning for laparoscopic appendectomy. He was returned to the floor and was able to advance diet and tolerate oral analgesics during the day and was stable for discharge home later that evening. Total Time Total Time Spent Total Time Spent (In Minutes): 15 Discharge Plan Discharge Items Patient Disposition: Home - Self-Care Reason For Visit: ABDOMINAL PAIN Discharge Diagnosis: appendectomy Condition on Discharge: Good Activity: Per Instructions section Lifting: No more than 10 pounds Bathing Comment: may shower starting 09/09/20; no soaking in tubs/pools Exercise/Sports: Wait until after follow-up appointment Driving/Machine Use: no driving while taking narcotics for pain Non-emergency contact: Surgeon Call non-emergency contact if: you have any medication questions, your symptoms worsen, your pain is not controlled, your pain is worsening, you have a fever, your temperature is above 101.5, your wound has increased redness, your wound has increased drainage and your wound pain has increased Follow-up/Referrals: Marlon Choe MD, FACS [Surgeon] - (Please call to schedule follow up in clinic within 1 week) Ranulfo Carcamo MD [Primary Care Provider] - (Please call to schedule with your provider ) Diet: Regular Addtl Attending Provider Instructions: You have small white bandages over your incisions called steri-strips. You may shower with these on. They will tend to fall off on their own within 7-10 days. Pending Studies at Discharge: Yes Studies:: surgical pathology Stand-Alone Forms: My [facility], Smoking Cessation Medications and DC Order Prescriptions: New oxycodone-acetaminophen [Percocet] 5-325 mg tablet 1 - 2 tab PO Q4H PRN (Reason: pain, initial therapy, max 6 daily) Qty: 15 RF: 0 Continued atorvastatin 20 mg tablet 20 mg PO QPM RF: 0 amlodipine 10 mg tablet 10 mg PO DAILY RF: 0 metformin 1,000 mg tablet 1,000 mg PO BID RF: 0 lisinopril 40 mg tablet 40 mg PO DAILY RF: 0 cholecalciferol (vitamin D3) [Vitamin D3] 25 mcg (1,000 unit) Capsule 25 mcg PO DAILY RF: 0 Multivitamin 50 Plus Tablet 1 tab PO Q OTHER DAY RF: 0 fluticasone propionate 50 mcg/actuation spray,suspension 2 spray INTRANASAL HS RF: 0 amoxicillin-pot clavulanate [Augmentin] 875-125 mg tablet 1 tab PO Q12H 10 Days Qty: 20 RF: 0 ascorbic acid (vitamin C) [Vitamin C] 1,000 mg Tablet 1 g PO DAILY RF: 0 B-complex with vitamin C Capsule 1 cap PO Q OTHER DAY RF: 0 Discharge Orders: Discharge Order (Routine); Ordered 09/08/20 Ordered By: Padmini Key Admission Data Admit Date/Time: 09/08/20 01:01 Attending Provider: Marlon Choe Admit Provider: Marlon Choe Primary Care Provider: Ranulfo Carcamo Other Providers: Marlon Choe Other Interventions: Discharge Summary Assessment (RN) Last Done: 09/08/20 18:02 Coding Level of Care Code D/C DAY MANAGEMENT <30 MINS Diagnoses Acute appendicitis K35.80 Appendicitis abscess presence: without abscess Appendicitis perforation presence: without perforation
== END 2020-09-08 18:20 | disposition home or self-care (01) ==
LOC: ED 21:08 → 3W 21:08